=== PATIENT | female | born 1935 | race Caucasian/White ===

== ENCOUNTER 2018-05-10 00:15 | Inpatient (IN) | payer MEDICARE ==
[2018-05-10] VITALS (16 sets, daily range): BP systolic 98–149; BP diastolic 60–95
[~2018-05-10] VITALS: Ht 160 cm; Wt 66.2 kg
[~2018-05-10 00:15] MED LIST: ALEN70TA43 PO; ESTR0.5T18 PO; LEV112 PO; NAPR220C12 PO; SIMV-54 PO; TRIA-20 PO
[2018-05-10] MEDS ORDERED: LIDOCAINE MPF 1% 5 ML VIAL ONE (08:27)
[2018-05-10] MEDS ORDERED: DEXAMETHASONE SOD 4 MG/ML VIAL ONE (08:27)
[2018-05-10] MEDS ORDERED: ONDANSETRON 4 MG/2 ML VIAL ONE (08:27)
[2018-05-10] MEDS ORDERED: PROPOFOL EMUL(*) 10MG/ML 20 ML 20 ML ONE (08:27)
[2018-05-10] MEDS ORDERED: fentaNYL CITR 100 MCG/2 ML AMP ONE (08:27)
[2018-05-10] MEDS ORDERED: KETAMINE HCL 200 MG/20 ML MDV ONE (08:28)
[2018-05-10] MEDS ORDERED: MIDAZOLAM 2 MG/2 ML VIAL ONE (08:31)
[2018-05-10] MEDS ORDERED: PREGABALIN 75 MG CAPSULE PO ONE (11:00)
[2018-05-10] MEDS ORDERED: CELECOXIB 200 MG CAP PO ONE (11:00)
[2018-05-10] MEDS ORDERED: MIDAZOLAM 2 MG/2 ML VIAL IVP PRN (11:00)
[2018-05-10] MEDS ORDERED: TRANEXAMIC AC 1000 MG/10ML SDV 1,000 MG in DEXTROSE 5% 50 ML BAG 50 ML IV ONE (11:00)
[2018-05-10] MEDS ORDERED: CLINDAMYCIN(*) 900 MG/NS 50 ML 50 ML IVPB ONE (11:00)
[2018-05-10] MEDS ORDERED: LIDOCAINE/SOD BICARB 8.4% SYR ID ONE (11:00)
[2018-05-10] MEDS ORDERED: NORMOSOL R SOLN(*) 1000 ML BAG 1,000 ML IV PRN (11:00)
[2018-05-10] MEDS ORDERED: cloNIDine EPIDUR INJ 100MCG/ML 40 MCG, ROPIVACAINE 0.5% 20 ML VIAL 25 ML, EPINEPHrine H... EPI ONE (11:00)
[2018-05-10] MEDS ORDERED: ACETAMINOPHEN 500 MG TAB PO ONE (11:00)
[2018-05-10] MEDS ORDERED: FAMOTIDINE 20 MG TAB PO ONE (11:00)
[2018-05-10] MEDS ORDERED: BACITRACIN 50000 UNIT/VIAL 100,000 UNIT in NS 0.9% 3000 ML IRRIGATION BAG 3,000 ML IR ONE (11:00)
[2018-05-10] MEDS ORDERED: diphenhydrAMINE 25 MG CAP PO PRN (11:25)
[2018-05-10] MEDS ORDERED: ONDANSETRON 4 MG/2 ML VIAL IVP PRN (11:25)
[2018-05-10] MEDS ORDERED: ZOLPIDEM TARTRATE 5 MG TAB PO PRN (11:25)
[2018-05-10] MEDS ORDERED: MAGNESIUM HYDROXIDE* 30ML UDCP PO PRN (11:25)
[2018-05-10] MEDS ORDERED: PROMETHAZINE 25 MG/ML 1 ML AMP IVP PRN (11:25)
[2018-05-10] MEDS ORDERED: LR 1000 ML BAG 1000 ML IV PRN (11:25)
[2018-05-10] MEDS ORDERED: PROMETHAZINE HCL(*) 25 MG SUPP PR PRN (11:25)
[2018-05-10] MEDS ORDERED: FLUSH 10 ML SYR IVP PRN (11:25)
[2018-05-10] MEDS ORDERED: BISACODYL 10 MG SUPP PR PRN (11:25)
[2018-05-10] MEDS ORDERED: diphenhydrAMINE 50 MG/ML VIAL IVP PRN (11:25)
[2018-05-10] MEDS ORDERED: MAGNESIUM CITRATE 300 ML BTL PO PRN (11:25)
[2018-05-10] MEDS ORDERED: HYDROmorphone HCL 2 MG/ML SDV IVP PRN (11:25)
--- NOTE | 2018-05-10 11:27 | RADIOLOGY IMAGING REPORT ---
FACILITY: [facility] - [place] PATIENT NAME: Arabella Pantoja : 1935 MR: [id number] V: [id number] EXAM DATE: ORDERING PHYSICIAN: AKASH MCKINNON TECHNOLOGIST: Location: [facility] Patient: Arabella Pantoja : 1935 Visit/Account:[id number] Date of Sevice: 05/10/2018 Exam type: HIP IN OR RIGHT History: RIGHT TOTAL HIP Comparison: None. Findings: There is a trial right hip arthroplasty that appears in good anatomic alignment on this single intrao perative AP view. IMPRESSION: 1. As above Report Dictated By: Marissa Alarcon MD at 05/10/2018 11:23 AM Report E-Signed By: Marissa Alarcon MD at 05/10/2018 11:23 AM WSN:[email or web address]
--- NOTE | 2018-05-10 11:46 | OPERATIVE REPORT 1 ---
EVENT DATE: May 10, 2018 SURGEON: Fredy Flynn MD ANESTHESIOLOGIST: Milo Angulo MD ANESTHESIA: General plus spinal. INSIDE CHANNEL ACCOUNT MANAGER: Kaden Crespo PA-C PREOPERATIVE DIAGNOSIS Right hip osteoarthritis. POSTOPERATIVE DIAGNOSIS Right hip osteoarthritis. PROCEDURE PERFORMED Right total hip arthroplasty. FINDINGS The patient had a significant amount of arthritic changes associated with her hip, but was amenable for total hip replacement. ESTIMATED BLOOD LOSS About 150 mL DRAINS None. COMPLICATIONS None. TOURNIQUET TIME Not applicable. IMPLANTS USED Dashawn 52 cluster hole trabecular metal shell as well as a neutral liner for a 36 head, a 9 standard offset M/L taper stem with a 36, -3.5 ceramic head, one dome hole plug, and three screw hole plugs in the acetabular shell. SPECIMENS None. INDICATIONS AND HISTORY This patient is an 82-year-old female who presented to my clinic for evaluation of right hip pain and irritation going on for some time. She continued to have pain and irritation despite conservative management, and so therefore, we got her set up to do a right total hip arthroplasty today, May 10, 2018. The risks and benefits were discussed with the patient, and informed consent was obtained at the last clinic visit. We talked about the implications of this as well as the aspects of leg length discrepancy, dislocation and other aspects of a total hip arthroplasty, and standard complications associated with it. After discussion of this, informed consent was obtained at the last clinic visit. DESCRIPTION OF PROCEDURE As the patient was brought in the operating room, she and the procedure were both verified. She was placed supine on the operating table and induced and intubated by Anesthesia after being given a spinal. She was then turned in the lateral decubitus position with the right hip towards the ceiling, and then the right hip was prepped and draped in the usual fashion. A timeout was observed verifying the correct patient and procedure. The standard posterolateral incision was made over the greater trochanter. It was taken through the skin and subcutaneous tissue until I identified the IT band and the gluteal musculature. Once I was able to get through the gluteal musculature and through the IT band, I was then able to expose the short external rotators. I then cut and tagged the piriformis for later repair, and then I was able to cut through the leading edge of the short external rotators in order to then dislocate the hip. I then cut the capsule in a T-type fashion , making the one side a little bit more superior in order to make it amenable for repair later on and decrease the chance for dislocation and for acetabular exposure. Once I dislocated the hip, I was then able to cut the femoral neck in the standard fashion in accordance with the Dashawn system and the M/L taper stems. I then removed the head, then we measured it on the back table, and then turned attention to the acetabulum where I was able to place retractors all the way around the ligamentum flavum through this area and the rest of the labrum, and then commenced reaming. We started with a 41 mm reamer and went all the way up to a 51 mm reamer in order to accommodate a 52 mm shell, which was a trabecular metal cluster hole shell. This fit well and had a good interference fit throughout and had good position, and so therefore, I put in the dome hole and screw hole plugs without any difficulty. I then put in the standard liner. I irrigated with copious amounts of saline, which I had throughout the case using a pulsatile lavage, and then turned attention to the femur. Once on the femur with the leg internally rotated and flexed, I was then able to use the box cutting osteotome, followed by the lateralizing reamer and the canal finder in order to then start broaching on this. This was started with a 4, and we got up to a 9 broach which filled the canal very well and had excellent fit, and so therefore, this was the final component chosen. We then also trialed a regular standard 36 head. This was then followed by a 36, -.3.5 which had better length associated with it, did not have as much tension, had a better fit associated with it, and it was still stable to flexion and internal rotation. I then took an x-ray to verify that we had good leg lengths associated with this , and so therefore, all the trial components were removed, and then we placed the final stem and ceramic head in the patient, relocated it, closed the capsule with a heavy Ethibond. This was then followed by placing drill holes in the posterior aspect of the greater trochanter to repair the piriformis. I then irrigated with, again, copious amounts of saline, then closed the gluteal musculature with a #2 running Stratafix. This was then followed by a 2-0 Vicryl in the surrounding layer of fat, then followed by 2-0 Stratafix in the subcutaneous tissue, and then subcuticular running 4-0 Monocryl, Steri-Strips, gauze 4 x 4's, and a soft dressing. We also put in a pain cocktail and used TXA throughout the case. The patient's dressing was then applied. She was awakened, extubated, and transferred to PACU in stable condition. She will remain in house for at least one night, and then we will discharge her when she passes criteria. DICKSON
--- NOTE | 2018-05-10 14:02 | Hospitalist Consultation ---
History of Present Illness Requesting Physician Dr. Flynn Reason for Consult Medical Management Chief Complaint s/p right total hip replacement History of Present Illness She was admitted s/p right total hip replacement. It is reported the surgery went well and without complication. History Problems: (1) Menieres disease Status: Chronic (2) Hyperlipidemia Status: Chronic (3) Hypothyroidism Status: Chronic Home Meds Reported Medications Naproxen Sodium (ALEVE) 220 Mg Capsule, 220 MG PO PRN, CAPSULE 05/03/18 Triamterene/Hydrochlorothiazid (TRIAMTERENE-HCTZ 37.5-25 MG TB) 1 Each Tablet, 1 EACH PO QDAY 05/03/18 Simvastatin (SIMVASTATIN) 40 Mg Tablet, 40 MG PO HS, TAB 05/03/18 Estradiol (ESTRACE) 0.5 Mg Tablet, 0.1 MG PO 2XW 05/03/18 Alendronate Sodium (FOSAMAX) 70 Mg Tablet, 70 MG PO QWK, TAB 05/03/18 Levothyroxine Sodium (LEVOTHYROXINE SODIUM) 0.112 Mg Tab, 0.1 MG PO QDAY, TAB 05/03/18 Allergies: Coded Allergies: Penicillins (Verified Allergy, Unknown, "as child" , 05/03/18) Patient History: FH: heart attack MOTHER FH: mental illness FATHER Hx Smoking: No Smoking Status: Never Smoker Caffeine Intake: Coffee Caffeine/Cups Per Day: 1 cpd Hx Alcohol Use: No Hx Substance Use Disorder: No Review of Systems All Systems Reviewed/Normal: Yes, Except as Noted Neurological: Confusion Exam Vital Signs Vital Signs Date Time Temp Pulse Resp B/P (MAP) Pulse Ox O2 Delivery O2 Flow Rate FiO2 05/10/18 13:11 97.5 59 16 125/83 (97) 95 Nasal Cannula 2.0 General Appearance: Alert, Awake, No Acute Distress, Afebrile Neuro: Other (repetetive stories told by patient) Cardiovascular: Regular Rate and Rhythm Respiratory: No Respiratory Distress, Clear to Auscultation Extremities: Perfused, No Edema Psych: Alert & Oriented X3, Appropriate Mood & Affect Assessment and Plan Problems: (1) Status post total hip replacement, right Status: Acute Assessment & Plan: Followed by Dr. Flynn. She will be placed on Aspirin 325mg daily for DVT prophylaxis. (2) Menieres disease Status: Chronic Assessment & Plan: She is on chronic treatment with Triamterene/ Hydrochlorothiazide. This medication has been restarted with hold parameters. (3) Hypothyroidism Status: Chronic Assessment & Plan: She is on chronic treatment with Levothyroxine. (4) Hyperlipidemia Status: Chronic Assessment & Plan: She is on chronic treatment with Simvastatin. Venous Thromboembolism Antithrombotics Is Pt On Any Antithrombotics?: No BRITTANY JORGE SONOGRAPHY TECHNICIAN May 10, 2018 14:02
--- NOTE | 2018-05-10 14:53 | RADIOLOGY IMAGING REPORT ---
FACILITY: [facility] - [place] PATIENT NAME: Arabella Pantoja : 1935 MR: [id number] V: [id number] EXAM DATE: ORDERING PHYSICIAN: AKASH MCKINNON TECHNOLOGIST: Location: [facility] [place] Patient: Arabella Pantoja : 1935 Visit/Account:[id number] Date of Sevice: 05/10/2018 Exam type: PELVIS History: post right ANNETTE Comparison: Intraoperative view of the right hip performed today. Findings: There is a right hip arthroplasty that appears in good anatomic alignment on this single AP view of t he pelvis. There are moderate degenerative changes the left hip joint IMPRESSION: 1. Right hip arthroplasty appears in good anatomic alignment on this AP view the pelvis Report Dictated By: Marissa Alarcon MD at 05/10/2018 2:48 PM Report E-Signed By: Marissa Alarcon MD at 05/10/2018 2:49 PM WSN:[email or web address]
[2018-05-10] MEDS: CLINDAMYCIN 150 MG CAP PO SCH (17:30)
[2018-05-10] MEDS ORDERED: ASPIRIN 325 MG TAB PO SCH (21:00)
[2018-05-10] MEDS ORDERED: SIMVASTATIN 40 MG TAB PO SCH (21:00)
[2018-05-11] MEDS: CLINDAMYCIN 150 MG CAP PO SCH ×2 (01:16→09:17)
[2018-05-11 03:55] VITALS: BP 93/66
[2018-05-11] MEDS ORDERED: LEVOTHYROXINE SOD 0.1 MG TAB PO SCH (06:30)
[2018-05-11 07:34] VITALS: BP 94/53
[2018-05-11] MEDS ORDERED: TRIAMTERENE/HCTZ 37.5-25MG CAPSULE PO SCH ×2 (09:00)
[2018-05-11] MEDS ORDERED: OXYC-865 PO (09:04)
[2018-05-11] MEDS ORDERED: ASPI-757 PO (10:06)
--- NOTE | 2018-05-11 10:10 | Hospitalist Progress Note ---
Subjective Progress Notes Subjective She has no concerns this morning. She states she would like to go home today. Patient Complains of: Cardiovascular: No: Chest Pain Respiratory: No: Shortness of Breath Physical Exam Vital Signs Date Time Temp Pulse Resp B/P (MAP) Pulse Ox O2 Delivery O2 Flow Rate FiO2 05/11/18 10:00 92 05/11/18 07:49 Nasal Cannula 1.0 05/11/18 07:34 97.6 65 16 94/53 (67) Intake and Output 05/12/18 01:00 Intake Total 800 ml Balance 800 ml Intake Oral 800 ml # Voids 1 General Appearance: Alert, Awake, No Acute Distress, Afebrile Neuro: No Gross deficits Cardiovascular: Regular Rate and Rhythm Respiratory: No Respiratory Distress, Clear to Auscultation Extremities: Perfused, No Edema Psych: Alert & Oriented X3, Appropriate Mood & Affect Result Diagram: 05/11/18 5047 Assessment and Plan Problems: (1) Status post total hip replacement, right Status: Acute Assessment & Plan: Followed by Dr. Flynn. She will be placed on Aspirin 325mg daily for DVT prophylaxis. (2) Menieres disease Status: Chronic Assessment & Plan: She is on chronic treatment with Triamterene/ Hydrochlorothiazide. Due to lower blood pressures, I have asked the patient to not restart this medication until her systolic blood pressure is above 140. She states she will see her PCP prior to restarting this medication. (3) Hypothyroidism Status: Chronic Assessment & Plan: She is on chronic treatment with Levothyroxine. (4) Hyperlipidemia Status: Chronic Assessment & Plan: She is on chronic treatment with Simvastatin. Exam Sepsis Risk: No Definite Risk BRITTANY JORGE PAINTER HELPER SIGN May 11, 2018 10:10
[2018-05-11 10:32] VITALS: Ht 160 cm; Wt 66.2 kg
[2018-05-11 12:25] VITALS: BP 91/65
== END 2018-05-11 13:12 | disposition home or self-care (01) | DRG 470 ==
LOC: OR 00:15 → MED 13:05
PROVIDERS: ADMIT Orthopaedic Surgery; ATTEND Orthopaedic Surgery
PROC: 0SR904A Replacement of Right Hip Joint with Ceramic on Polyethylene Synthetic Substitute, Uncemented, Open Approach (ICD-10-PCS; principal; 2018-05-10 09:10)
DX: M16.11 Unilateral primary osteoarthritis, right hip (principal); E03.9 Hypothyroidism, unspecified; I25.10 Atherosclerotic heart disease of native coronary artery without angina pectoris; E78.5 Hyperlipidemia, unspecified; I10 Essential (primary) hypertension; H81.09 Meniere's disease, unspecified ear; Z88.0 Allergy status to penicillin; Z86.73 Personal history of transient ischemic attack (TIA), and cerebral infarction without residual deficits; Z79.82 Long term (current) use of aspirin
CPT/HCPCS: 36415; 72170; 85014; 85018; 85610; 86850; 86900; 86901; 97161; 97165; C1713; C1776; J0171; J0735; J1100; J1885; J2001; J2250; J2405; J2704; J2795; J3010; J3490; J7050; J7060